=== PATIENT | male | born 1950 | race Hispanic/Latino ===

== ENCOUNTER 2016-02-23 15:25 | Emergency (ER) | payer MEDICARE, SELFPAY ==
[2016-02-23] MEDS ORDERED: Ondansetron ODT 4 MG TAB ONE (15:46)
--- NOTE | 2016-02-23 17:08 | ERRECORD ---
[facility] EMERGENCY RECORD HPI NAUSEA/VOMITING/DIARRHEA (15:44 [facility] CHIEF COMPLAINT: Patient presents for evaluation of nausea, Patient presents for evaluation of vomiting, Patient presents for evaluation of diarrhea, Patient presents for evaluation of dehydration. HISTORIAN: History provided by patient, 65M presents to the ED with complaints of nausea, vomiting and diarrhea that began early this morning around 430. States he ate at a [place] restaurant he has never been to before yesterday evening. Denies abdominal pain. Denies blood in his stool or vomit. Denies back pain, or urinary complaints. LOCATION MALE: No localizing symptoms. QUALITY: Pain is dull in nature, described as cramping. TIME COURSE: Sudden onset of symptoms, There has been no change in the patient's symptoms over time, are intermittent. ASSOCIATED WITH MALE: Associated with inability to tolerate oral intake, Associated with vomiting. EXACERBATED BY: Patient's condition exacerbated by food. RELIEVED BY: Patient's condition relieved by nothing. ROS (15:46 JJA) CONSTITUTIONAL: Negative constitutional review of systems, Historian denies chills, denies fever. EYES: Negative eye review of systems, Historian denies eye pain, denies eye discharge, denies vision changes. ENT: Negative ears, nose, throat review of systems, Historian denies rhinorrhea, denies sore throat. CARDIOVASCULAR: Negative cardiovascular review of systems, Historian denies chest pain, denies palpitations. RESPIRATORY: Negative respiratory review of systems, Historian denies cough, denies shortness of breath. GI: Historian reports diarrhea, reports nausea, reports vomiting. GENITOURINARY MALE: Negative genitourinary review of systems, Historian denies dysuria, denies hematuria. MUSCULOSKELETAL: Negative musculoskeletal review of systems, Historian denies back pain, denies fall, denies injury, denies neck pain. SKIN: Negative skin review of systems, Historian denies rash, denies skin changes. NEUROLOGIC: Negative neurologic review of systems, Historian denies headache. HEMO/LYMPHATIC: Normal hematologic/lymphatic system review, Historian denies abnormal blood clotting. PAST MEDICAL HISTORY (15:46 WJAN) MEDICAL HISTORY: Flu vaccine up to date, Tetanus immunization up to date, Pneumococcal vaccine up to date, Past medical history includes history of diabetes, Type II, Past medical history includes endocrine disease, hyperthyroidism. &a-1R&a+25V*p+0X*l9789G*c202B*c15G*c2P*p-0X&a-25V&a+1R Name: Darrell Guevara : 1950 M65 MedRec: [id number] AcctNum: [id number] Prepared: Amanedep Feb 23, 2016 17:30 by Interface Page 1 of 4 pMD [facility] EMERGENCY RECORD MALE SURGICAL HISTORY: Surgical history of amputation to, left upper extremity, Notes: Index finger reattached. PSYCHIATRIC HISTORY: No previous psychiatric history. SOCIAL HISTORY: Patient drinks socially, once a month, Patient denies drug use, Patient has no smoking history. KNOWN ALLERGIES No Known Drug Allergies CURRENT MEDICATIONS levothyroxine: TABLET : Strength - 25 mcg : ORAL Patient Dose: 1 tab(s) Oral once a day (in the morning). (15:35 WJAN) Levemir Flexpen: INSULIN PEN (ML) : Strength - 100 unit/mL (3 mL) : SUBCUTANEOUS Patient Dose: 20 units Subcutaneous once a day (in the morning). (15:38 WJAN) VITAL SIGNS VITAL SIGNS: BP: 110/75, Pulse: 108, Resp: 18 (Non-Labored), Temp: 98.4 (Oral), Pain: 0, O2 sat: 98 on Room Air, Time: 02/23/2016 15:34. (15:34 WJAN) BP: 97/59, Pulse: 89, Resp: 18, Pain: 0, O2 sat: 100 on Room Air, Time: 02/23/2016 16:30. (16:30 AHOO) BP: 127/72, Pulse: 92, Resp: 18, Temp: 98.6 (Oral), Pain: 0, O2 sat: 98 on Room Air, Time: 02/23/2016 17:01. (17:01 AHOO) PHYSICAL EXAM (15:46 [facility]) CONSTITUTIONAL: Vital signs reviewed, Patient afebrile, Pulse normal, Blood pressure normal, Respiratory rate normal, Patient appears non toxic, Patient appears pain free, Patient alert and oriented to person, place and time. HEAD: Head exam normal, Head exam included findings of head atraumatic, normocephalic. EYES: Eye exam normal, Eye exam included findings of eyelids normal to inspection, Pupils equally round and reactive to light, Extraocular muscles intact, no nystagmus. ENT: ENT exam normal, Ear exam normal, external ear normal, tympanic membranes normal, no bleeding, Pharynx exam normal, Uvula exam normal, Tonsil exam normal, Mouth exam normal, mucous membranes moist, teeth normal. NECK: Neck exam normal, Neck exam included findings of normal range of motion, Trachea midline, no meningeal signs, no cervical adenopathy, no tenderness. RESPIRATORY CHEST: Respiratory and chest exam normal, Respiratory exam included findings of no respiratory distress, Breath sounds clear. CARDIOVASCULAR: Cardiovascular assessment normal, Cardiovascular &a-1R&a+25V*p+0X*r9144J*c202B*c15G*c2P*p-0X&a-25V&a+1R Name: Darrell Guevara : 1950 M65 MedRec: [id number] AcctNum: [id number] Prepared: Amandeep Feb 23, 2016 17:30 by Interface Page 2 of 4 D [facility] EMERGENCY RECORD exam included findings of heart rate regular rate and rhythm, Heart sounds normal. ABDOMEN MALE: Abdominal exam included findings of abdomen nontender, Bowel sounds normal, no distension, no mass, no pulsatile masses, no peritoneal signs, no rigidity, no guarding, no rebound, Rovsing's sign absent. BACK: Back exam normal, Back exam included findings of normal inspection, range of motion normal, no tenderness. UPPER EXTREMITY: Upper extremity exam normal, Upper extremity exam included findings of inspection normal, Range of motion normal, Motor strength normal, Sensation intact, Radial pulse normal. LOWER EXTREMITY: Lower extremity exam normal, Lower extremity exam included findings of inspection normal, Range of motion normal, Motor strength normal, Sensation intact, Posterior tibial pulse normal, Pedal pulse normal. NEURO: Neuro exam normal, Neuro exam findings include patient oriented to person, place and time, Speech normal, Gait normal. SKIN: Skin exam normal, Skin exam included findings of skin warm, dry, and normal in color, no rash. PSYCHIATRIC: Psychiatric exam normal, Normal affect. MEDICATION ADMINISTRATION SUMMARY Drug Name: *ondansetron, Dose Ordered: 4 mg, Route: Sublingual, Status: Given, Time: 15:47 02/23/2016, *Additional information available in notes, Detailed record available in Medication Service section. DOCTOR NOTES (16:59 [facility]) RE-EVALUATION: Routine re-evaluation, after administration of antiemetics, The patient's condition has improved. TEXT: Patient presented with abdominal pain, nausea, and diarrhea. The patient was well appearing and non toxic with stable vital signs. Physical exam including thorough abdominal exam was unremarkable. Considered such diagnoses as appendicitis, obstruction, or cholecystitis, but based on history and exam, felt these were unlikely. Imaging studies not warranted at this time. The patient is appropriate for outpatient management and follow up with PMD. If abdominal pain worsens, the patient should return to the ED for re-evaluation. PATIENT STATUS: Patient has improved since arrival to emergency department. PATIENT PLAN: The patient will be discharged, The patient will follow up with primary care physician. PROBLEM LIST No recorded problems DIAGNOSIS (16:57 [facility]) FINAL: PRIMARY: Acute Gastroenteritis - presumed &a-1R&a+25V*p+0X*b0798A*c202B*c15G*c2P*p-0X&a-25V&a+1R Name: Darrell Guevara : 1950 M65 MedRec: [id number] AcctNum: [id number] Prepared: Amandeep Feb 23, 2016 17:30 by Interface Page 3 of 4 pMD [facility] EMERGENCY RECORD infectious. PRESCRIPTION (16:59 [facility]) Zofran ODT: TABLET, RAPID DISSOLVE : 4 mg : ORAL : Quantity: 4 Unit: mg Route: ORAL Schedule: every 8 hours PRN Dispense: 12 May substitute. Refills: No Refills . NOTES: Take as needed for nausea or vomiting. One refill authorized No refills. DISPOSITION PATIENT: Disposition Type: Discharge, Disposition: *Discharge Home. (16:57 [facility]) Patient left the department. (17:23 [facility]) Rush: KEE=LEIF Coon, May [facility] Alicia, Jose MALAGON=CHANDNI Ashley, Faby &a-1R&a+25V*p+0X*d4715C*c202B*c15G*c2P*p-0X&a-25V&a+1R Name: Guevara Darrell Chowdary : 1950 M65 MedRec: [id number] AcctNum: [id number] Prepared: Amandeep Feb 23, 2016 17:30 by Interface Page 4 of 4 pMD MTDD
--- NOTE | 2016-02-23 17:19 | PICIS ---
[facility] EMERGENCY RECORD TRIAGE (MonFeb 23, 2016 15:35 WJAN) TRIAGE NOTES: vomiting SINCE 4AM THIS MORNING. (MonFeb 23, 2016 15:35 WJAN) PATIENT: NAME: Darrell Guevara, AGE: 65, GENDER: male, : [facility] 1950, TIME OF GREET: MonFeb 23, 2016 15:26, PREFERRED LANGUAGE: Serbian, ETHNICITY: or , ECODE BILLING MAP: [facility], SSN: [id number], Zip Code: [address], KG WEIGHT: 86.18 (est.), , , PERSON ID: [id number], PAYMENT: X Medicare, PCP: MD Higgins Kyle. (MonFeb 23, 2016 15:35 WJAN) PHONE: . (16:11) COMPLAINT: Vomiting Alone. (MonFeb 23, 2016 15:35 WJAN) ADMISSION: URGENCY: 4 Non Urgent, ADMISSION SOURCE: Home, TRANSPORT: Walk-in, BED: TRIAGE. (MonFeb 23, 2016 15:35 WJAN) IMMUNIZATIONS: Flu vaccine up to date, Tetanus immunization up to date, Pneumococcal vaccine up to date. (15:46 WJAN) SIRS SCORING: Heart Rate 55-109 (0), Temp range 96.8-101.1 (0), respiratory rate 12-24 (0), Mental Status altered: no (0), Infection or Suspected Infection: No. (15:46 WJAN) TRIAGE SCREENING: Patient denies suicidal ideation, Patient denies presence of domestic violence. (15:46 WJAN) PROVIDERS: TRIAGE NURSE: Faby Ashley RN. (MonFeb 23, 2016 15:35 WJAN) VITAL SIGNS: BP 110/75, Pulse 108, Resp 18, (Non-Labored), Temp 98.4, (Oral), Pain 0, O2 Sat 98, on Room Air, Time 02/23/2016 15:34. (15:34 WJAN) PREVIOUS VISIT ALLERGIES: No Known Drug Allergies. (MonFeb 23, 2016 15:35 WJAN) No Known Drug Allergies. (15:46 WJAN) KNOWN ALLERGIES No Known Drug Allergies CURRENT MEDICATIONS levothyroxine: TABLET : Strength - 25 mcg : ORAL Patient Dose: 1 tab(s) Oral once a day (in the morning). (15:35 WJAN) Levemir Flexpen: INSULIN PEN (ML) : Strength - 100 unit/mL (3 mL) : SUBCUTANEOUS Patient Dose: 20 units Subcutaneous once a day (in the morning). (15:38 WJAN) VITAL SIGNS VITAL SIGNS: BP: 110/75, Pulse: 108, Resp: 18 (Non-Labored), Temp: 98.4 (Oral), Pain: 0, O2 sat: 98 on Room Air, Time: 02/23/2016 15:34. (15:34 WJAN) BP: 97/59, Pulse: 89, Resp: 18, Pain: 0, O2 sat: 100 on Room Air, Time: 02/23/2016 16:30. (16:30 AHOO) BP: 127/72, Pulse: 92, Resp: 18, Temp: 98.6 (Oral), Pain: 0, O2 sat: 98 &a-1R&a+25V*p+0X*e5384L*c202B*c15G*c2P*p-0X&a-25V&a+1R Name: Darrell Guevara : 1950 M65 MedRec: [id number] AcctNum: [id number] Prepared: Amandeep Feb 23, 2016 17:35 by Interface Page [address] [facility] EMERGENCY RECORD on Room Air, Time: 02/23/2016 17:01. (17:01 AHOO) NURSING ASSESSMENT: FOCUSED (15:40 WJAN) CONSTITUTIONAL: Patient arrives ambulatory, Gait steady, History obtained from patient, Patient appears comfortable, Patient cooperative, Patient alert, Oriented to person, place and time, Skin warm, Skin dry, Skin normal in color, Mucous membranes pink, Mucous membranes moist, Patient is well-groomed, Patient complains of Vomiting, Pt reports vomiting since 4am today, pt reports BS at 290s, pt A&ox4, NAD, breathing non-labored. PAIN: Patient rates pain as 0 out of 10. NEURO: Focused neuro assessment findings include patient alert, cooperative, No facial droop noted, Speech coherent, no weakness, no numbness, No loss of consciousness. GCS: Eye opening: (4) - Spontaneous, Verbal: (5) - Oriented/conversive, Motor: (6) - Obeys commands/Spontaneous, GCS Total: 15. RESPIRATORY: Focused respiratory assessment findings include breath sounds clear, Breath sounds without rales, Breath sounds without rhonchi, Breath sounds without wheezing. ABDOMEN: Focused abdominal assessment findings include abdomen soft, no constipation, no diarrhea, no complaint of nausea, Vomiting, Number of times: 10, Bowel sounds present. SAFETY: Side rails up, Cart/Stretcher in lowest position, Family at bedside, Call light within reach, Hospital ID band on. NURSING PROCEDURE: BEDSIDE TESTING (15:39 WJAN) PATIENT IDENTIFIER: Patient actively involved in identification process, Patient's identity verified by patient stating name, Patient's identity verified by patient stating date, Patient's identity verified by hospital ID bracelet. GLUCOSE: Glucose testing indicated for diabetic patient, Capillary blood sample, Result (mg/dl) 280. FOLLOW-UP: After procedure, results given to Dr. Vargas. SAFETY: Side rails up, Cart/Stretcher in lowest position, Family at bedside, Call light within reach, Hospital ID band on. NURSING PROCEDURE: DISCHARGE NOTE (17:03 AHOO) DISCHARGE: Patient discharged to home, ambulating without assistance, family driving, accompanied by other family member, Summary of Care printed/ provided, Transition record given to patient, Discharge instructions given to patient, Prescriptions given and instructions on side effects given, Above person(s) verbalized understanding of discharge instructions and follow-up care, Patient treated and evaluated by physician. NURSING PROCEDURE: NURSE NOTES (16:22 WJAN) NURSES NOTES: Notes: Pt resting in bed with family at bedside eating crackers and drinking water for PO challenge. Pt &a-1R&a+25V*p+0X*p3814Q*c202B*c15G*c2P*p-0X&a-25V&a+1R Name: Guevara Darrell Chowdary : 1950 M65 MedRec: [id number] AcctNum: [id number] Prepared: Amandeep Feb 23, 2016 17:35 by Interface Page [address] [facility] EMERGENCY RECORD tolerating well at this this time. NURSING PROCEDURE: PO CHALLENGE PATIENT IDENTIFIER: Patient actively involved in identification process, Patient's identity verified by patient stating name, Patient's identity verified by patient stating date, Patient's identity verified by hospital ID erica. (16:21 WJAN) PO CHALLENGE: Oral fluid challenge indicated for follow up on anti-emetics given, Oral challenge performed, patient given water, amount (mL) 60. (16:21 WJAN) FOLLOW-UP: After procedure, patient tolerated oral challenge, Notes: PT TOLERATED WELL. (17:00 AHOO) SAFETY: Side rails up, Cart/Stretcher in lowest position, Family at bedside, Call light within reach, Hospital ID band on. (16:21 WJAN) MEDICATION ADMINISTRATION SUMMARY Drug Name: *ondansetron, Dose Ordered: 4 mg, Route: Sublingual, Status: Given, Time: 15:47 02/23/2016, *Additional information available in notes, Detailed record available in Medication Service section. MEDICATION SERVICE ondansetron: Order: ondansetron - Dose: 4 mg : Sublingual Notes: Generic ODT Ordered by: Jose Vargas MD Entered by: Jose Vargas MD [facility] Feb 23, 2016 15:44 , Acknowledged by: Faby Ashley RN gilbert Feb 23, 2016 15:46 Documented as given by: Faby Ashley RN Feb 23, 2016 15:47 Patient, Medication, Dose, Route and Time verified prior to administration. Amount given: 1 tab, Site: Medication administered S.L., Correct patient, time, route, dose and medication confirmed prior to administration, Patient advised of actions and side-effects prior to administration, Allergies confirmed and medications reviewed prior to administration, Patient in position of comfort, Side rails up, Cart in lowest position, Family at bedside. : Follow Up : Response assessment performed, No signs or symptoms of allergic reaction noted, Decreased nausea. (17:00 OO) HPI NAUSEA/VOMITING/DIARRHEA (15:44 [facility]) CHIEF COMPLAINT: Patient presents for evaluation of nausea, Patient presents for evaluation of vomiting, Patient presents for evaluation of diarrhea, Patient presents for evaluation of dehydration. HISTORIAN: History provided by patient, 65M presents to the ED with complaints of nausea, vomiting and diarrhea that began early this &a-1R&a+25V*p+0X*e0486I*c202B*c15G*c2P*p-0X&a-25V&a+1R Name: Darrell Guevara : 1950 M65 MedRec: [id number] AcctNum: [id number] Prepared: Amandeep Feb 23, 2016 17:35 by Interface Page [address] [facility] EMERGENCY RECORD morning around 430. States he ate at a [place] restaurant he has never been to before yesterday evening. Denies abdominal pain. Denies blood in his stool or vomit. Denies back pain, or urinary complaints. LOCATION MALE: No localizing symptoms. QUALITY: Pain is dull in nature, described as cramping. TIME COURSE: Sudden onset of symptoms, There has been no change in the patient's symptoms over time, are intermittent. ASSOCIATED WITH MALE: Associated with inability to tolerate oral intake, Associated with vomiting. EXACERBATED BY: Patient's condition exacerbated by food. RELIEVED BY: Patient's condition relieved by nothing. ROS (15:46 [facility]) CONSTITUTIONAL: Negative constitutional review of systems, Historian denies chills, denies fever. EYES: Negative eye review of systems, Historian denies eye pain, denies eye discharge, denies vision changes. ENT: Negative ears, nose, throat review of systems, Historian denies rhinorrhea, denies sore throat. CARDIOVASCULAR: Negative cardiovascular review of systems, Historian denies chest pain, denies palpitations. RESPIRATORY: Negative respiratory review of systems, Historian denies cough, denies shortness of breath. GI: Historian reports diarrhea, reports nausea, reports vomiting. GENITOURINARY MALE: Negative genitourinary review of systems, Historian denies dysuria, denies hematuria. MUSCULOSKELETAL: Negative musculoskeletal review of systems, Historian denies back pain, denies fall, denies injury, denies neck pain. SKIN: Negative skin review of systems, Historian denies rash, denies skin changes. NEUROLOGIC: Negative neurologic review of systems, Historian denies headache. HEMO/LYMPHATIC: Normal hematologic/lymphatic system review, Historian denies abnormal blood clotting. PAST MEDICAL HISTORY (15:46 JAN) MEDICAL HISTORY: Flu vaccine up to date, Tetanus immunization up to date, Pneumococcal vaccine up to date, Past medical history includes history of diabetes, Type II, Past medical history includes endocrine disease, hyperthyroidism. MALE SURGICAL HISTORY: Surgical history of amputation to, left upper extremity, Notes: Index finger reattached. PSYCHIATRIC HISTORY: No previous psychiatric history. SOCIAL HISTORY: Patient drinks socially, once a month, Patient denies drug use, Patient has no smoking history. &a-1R&a+25V*p+0X*n5371Y*c202B*c15G*c2P*p-0X&a-25V&a+1R Name: Darrell Guevara : 1950 M65 MedRec: [id number] AcctNum: [id number] Prepared: Amandeep Feb 23, 2016 17:35 by Interface Page [address] [facility] EMERGENCY RECORD PHYSICAL EXAM (15:46 [facility]) CONSTITUTIONAL: Vital signs reviewed, Patient afebrile, Pulse normal, Blood pressure normal, Respiratory rate normal, Patient appears non toxic, Patient appears pain free, Patient alert and oriented to person, place and time. HEAD: Head exam normal, Head exam included findings of head atraumatic, normocephalic. EYES: Eye exam normal, Eye exam included findings of eyelids normal to inspection, Pupils equally round and reactive to light, Extraocular muscles intact, no nystagmus. ENT: ENT exam normal, Ear exam normal, external ear normal, tympanic membranes normal, no bleeding, Pharynx exam normal, Uvula exam normal, Tonsil exam normal, Mouth exam normal, mucous membranes moist, teeth normal. NECK: Neck exam normal, Neck exam included findings of normal range of motion, Trachea midline, no meningeal signs, no cervical adenopathy, no tenderness. RESPIRATORY CHEST: Respiratory and chest exam normal, Respiratory exam included findings of no respiratory distress, Breath sounds clear. CARDIOVASCULAR: Cardiovascular assessment normal, Cardiovascular exam included findings of heart rate regular rate and rhythm, Heart sounds normal. ABDOMEN MALE: Abdominal exam included findings of abdomen nontender, Bowel sounds normal, no distension, no mass, no pulsatile masses, no peritoneal signs, no rigidity, no guarding, no rebound, Rovsing's sign absent. BACK: Back exam normal, Back exam included findings of normal inspection, range of motion normal, no tenderness. UPPER EXTREMITY: Upper extremity exam normal, Upper extremity exam included findings of inspection normal, Range of motion normal, Motor strength normal, Sensation intact, Radial pulse normal. LOWER EXTREMITY: Lower extremity exam normal, Lower extremity exam included findings of inspection normal, Range of motion normal, Motor strength normal, Sensation intact, Posterior tibial pulse normal, Pedal pulse normal. NEURO: Neuro exam normal, Neuro exam findings include patient oriented to person, place and time, Speech normal, Gait normal. SKIN: Skin exam normal, Skin exam included findings of skin warm, dry, and normal in color, no rash. PSYCHIATRIC: Psychiatric exam normal, Normal affect. EVENTS TRANSFER: Triage to Emergency Triage. (MonFeb 23, 2016 15:35 WJAN) Emergency Triage to Emergency Room -03. (15:41 WJAN) Removed from Emergency Emergency Room -03. (17:23 AHOO) DOCTOR NOTES (16:59 JJA) RE-EVALUATION: Routine re-evaluation, after administration of &a-1R&a+25V*p+0X*d8428J*c202B*c15G*c2P*p-0X&a-25V&a+1R Name: Christoph Guevaranirali Chowdary : 1950 M65 MedRec: [id number] AcctNum: [id number] Prepared: MonFeb 23, 2016 17:35 by Interface Page [address] [facility] EMERGENCY RECORD antiemetics, The patient's condition has improved. TEXT: Patient presented with abdominal pain, nausea, and diarrhea. The patient was well appearing and non toxic with stable vital signs. Physical exam including thorough abdominal exam was unremarkable. Considered such diagnoses as appendicitis, obstruction, or cholecystitis, but based on history and exam, felt these were unlikely. Imaging studies not warranted at this time. The patient is appropriate for outpatient management and follow up with PMD. If abdominal pain worsens, the patient should return to the ED for re-evaluation. PATIENT STATUS: Patient has improved since arrival to emergency department. PATIENT PLAN: The patient will be discharged, The patient will follow up with primary care physician. PROBLEM LIST No recorded problems DIAGNOSIS (16:57 JJA) FINAL: PRIMARY: Acute Gastroenteritis - presumed infectious. DISPOSITION PATIENT: Disposition Type: Discharge, Disposition: *Discharge Home. (16:57 JJAC) Patient left the department. (17:23 AHOO) INSTRUCTION (16:58 JJA) DISCHARGE: NAUSEA VOMITING 5YADULT. FOLLOWUP: Gisela, MD, Wilian, Family Practice, [facility], [place] [address], . SPECIAL: Make sure you're drinking lots of fluids, eat bland foods. Follow up with your primary care doctor. PRESCRIPTION (16:59 [facility]) Zofran ODT: TABLET, RAPID DISSOLVE : 4 mg : ORAL : Quantity: 4 Unit: mg Route: ORAL Schedule: every 8 hours PRN Dispense: 12 May substitute. Refills: No Refills . NOTES: Take as needed for nausea or vomiting. One refill authorized No refills. IMAGING (17:29 [facility]) *DISCHARGE INSTRUCTIONS RECEIPT: Image captured from scanner. *SUPPLY CHARGE SHEET: Image captured from scanner. ADMIN (17:02 [facility]) DIGITAL SIGNATURE: MD Alicia, Jose. Rush: &a-1R&a+25V*p+0X*n5165A*c202B*c15G*c2P*p-0X&a-25V&a+1R Name: Darrell Guevara : 1950 M65 MedRec: [id number] AcctNum: [id number] Prepared: gilbert Feb 23, 2016 17:35 by Interface Page [address] [facility] EMERGENCY RECORD AHOO=LEIF Coon, May [facility]=MD Vargas Jason WJAN=CHANDNI Ashley, Faby &a-1R&a+25V*p+0X*r5034K*c202B*c15G*c2P*p-0X&a-25V&a+1R Name: Darrell Guevara : 1950 M65 MedRec: [id number] AcctNum: [id number] Prepared: MonFeb 23, 2016 17:35 by Interface Page 7 of 7 pMD MTDD
== END 2016-02-23 17:03 | disposition home or self-care (01) ==
LOC: BURERS 15:25
DX: K52.9 Noninfective gastroenteritis and colitis, unspecified (principal); E11.9 Type 2 diabetes mellitus without complications; E05.90 Thyrotoxicosis, unspecified without thyrotoxic crisis or storm; Z89.202 Acquired absence of left upper limb, unspecified level; Z79.4 Long term (current) use of insulin; Z79.899 Other long term (current) drug therapy
CPT/HCPCS: 36416; 99283; Q0162

== ENCOUNTER 2016-04-12 09:45 | Outpatient (CLI) | payer MEDICARE, SELFPAY ==
[2016-04-12 12:47] LABS: #Eosinphils 0.1 thou/uL (0.0-0.7); #Lymphocytes 1.9 thou/uL (1.20-3.40); #Monocytes 0.5 thou/uL (0.11-0.59); #Neutrophils 4.3 thou/uL (1.40-6.50); %Basophils 0.7 % (0.0-1.0); %Eosinophils 1.7 % (0.0-10.0); %Monocytes 7.5 % (0.0-10.0); Hematocrit 44.8 % (42.0-52.0); Red Blood Cell (RBC) Count 4.89 mill/uL (4.70-6.10); White Blood Cell (WBC) Count 6.9 thou/uL (4.8-10.8)
[2016-04-12 13:06] LABS: ALT (SGPT) 44 U/L (0-55); AST (SGOT) 46 U/L (5-34); Alkaline Phosphatase 179 U/L (40-150); Anion Gap 15 mmol/L (10-20); BUN (Urea Nitrogen) 13 mg/dL (8.4-25.7); Bilirubin, Total 1.8 mg/dL (0.2-1.2); Calc. Creatinine Clearance 0 mL/min (70-130); Calcium 9.4 mg/dL (7.8-10.44); Carbon Dioxide 23 mmol/L (23-31); Chloride 106 mmol/L (98-107); Estimated GFR-MDRD 74; LDL Cholesterol, Calculated 125 mg/dL; Protein, Total 7.8 g/dL (5.8-8.1)
== END 2016-04-12 09:46 | disposition home or self-care (01) ==
LOC: HPCALD 09:45
PROVIDERS: ATTEND Family Medicine
DX: Z12.5 Encounter for screening for malignant neoplasm of prostate (principal); E11.9 Type 2 diabetes mellitus without complications; I10 Essential (primary) hypertension; E03.9 Hypothyroidism, unspecified; E78.2 Mixed hyperlipidemia; E53.8 Deficiency of other specified B group vitamins
CPT/HCPCS: 36415; 80053; 80061; 82607; 83036; 84439; 84443; 85025; G0103

== ENCOUNTER 2016-10-26 10:56 | Outpatient (CLI) | payer MEDICARE, SELFPAY ==
[2016-10-26 13:14] LABS: ALT (SGPT) 25 U/L (8-55); AST (SGOT) 27 U/L (5-34); Albumin 3.9 g/dL (3.4-4.8); Alkaline Phosphatase 125 U/L (40-150); Anion Gap 15 mmol/L (10-20); BUN (Urea Nitrogen) 11 mg/dL (8.4-25.7); Bilirubin, Total 1.9 mg/dL (0.2-1.2); Calc. Creatinine Clearance 0 mL/min (70-130); Calcium 8.9 mg/dL (7.8-10.44); Carbon Dioxide 22 mmol/L (23-31); Cardiac Risk 6.7 (Less than 4.5); Chloride 109 mmol/L (98-107); Cholesterol 175 mg/dl (< 200 Desired); Estimated GFR-MDRD 82; Globulin 3.5 g/dL (2.4-3.5); Glucose 186 mg/dL (80-115); HDL Cholesterol 26 mg/dL (>60 Neg Risk); LDL Cholesterol, Calculated 83 mg/dL; Potassium 3.9 mmol/L (3.5-5.1); Protein, Total 7.4 g/dL (5.8-8.1); Sodium 142 mmol/L (136-145); Triglycerides 331 mg/dL (Less than 150)
[2016-10-26 13:18] LABS: Free T4 (Free Thyroxine) 1.39 ng/dL (0.70-1.48); Thyroid Stimulating Hormone 0.422 uIU/mL (0.35-4.94)
[2016-10-26 13:51] LABS: Hemoglobin A1c 8.9 % (4.0-6.0)
[2016-10-26 14:23] LABS: #Basophils 0.1 thou/uL (0.0-0.2); #Eosinphils 0.1 thou/uL (0.0-0.7); #Lymphocytes 1.7 thou/uL (1.20-3.40); #Monocytes 0.5 thou/uL (0.11-0.59); #Neutrophils 4.7 thou/uL (1.40-6.50); %Eosinophils 1.1 % (0.0-10.0); %Lymphocytes 24.5 % (21.0-51.0); %Monocytes 6.4 % (0.0-10.0); Hemoglobin 14.8 g/dL (14.0-18.0); Mean Corpuscular HGB CONC 36.1 g/dL (32.0-36.0); Mean Corpuscular Hemoglobin 33.1 pg (27.0-31.0); Mean Corpuscular Volume 91.7 fl (80.0-94.0); Mean Platelet Volume 7.6 fL (7.4-10.4); Platelet Count 113 thou/uL (130-400); RBC Distribution Width 11.4 % (11.5-14.5); Red Blood Cell (RBC) Count 4.48 mill/uL (4.70-6.10)
[2016-10-26 14:31] LABS: Manual Diff?? YES; PLT Morphology Comment Appears Decreased
[2016-10-26 14:33] LABS: MDiff Complete? YES
== END 2016-10-26 10:57 | disposition home or self-care (01) ==
LOC: HPCALD 10:56
PROVIDERS: ATTEND Family Medicine
DX: E11.9 Type 2 diabetes mellitus without complications (principal); E03.9 Hypothyroidism, unspecified; E78.2 Mixed hyperlipidemia; E53.8 Deficiency of other specified B group vitamins
CPT/HCPCS: 36415; 80053; 80061; 82607; 83036; 84439; 84443; 85025

== ENCOUNTER 2017-10-04 10:30 | Emergency (ER) | payer MEDICARE ==
[2017-10-04] MEDS ORDERED: Naloxone HCl 0.4 mg/ml Vial ONE (10:39)
[2017-10-04 11:09] LABS: ALT (SGPT) 57 U/L (8-55); AST (SGOT) 53 U/L (5-34); Acetaminophen Less than 6.0 mcg/mL (10.0-30.0); Alcohol Less than 10 mg/dL (Less than 10); Alkaline Phosphatase 123 U/L (40-150); Anion Gap 21 mmol/L (10-20); BUN (Urea Nitrogen) 17 mg/dL (8.4-25.7); Bilirubin, Total 3.1 mg/dL (0.2-1.2); Calc. Creatinine Clearance 0 mL/min (70-130); Calcium 9.5 mg/dL (7.8-10.44); Carbon Dioxide 17 mmol/L (23-31); Chloride 104 mmol/L (98-107); Estimated GFR-MDRD 44; Globulin 4.3 g/dL (2.4-3.5); Glucose 339 mg/dL (80-115); Potassium 3.9 mmol/L (3.5-5.1); Protein, Total 8.3 g/dL (5.8-8.1); Salicylate Less than 8.0 mg/dL (15.0-30.0); Sodium 138 mmol/L (136-145)
[2017-10-04 11:10] LABS: Troponin I Less than 0.010 ng/mL (< 0.028)
[2017-10-04 11:24] LABS: CKMB 15.5 ng/mL (0-6.6)
[2017-10-04 11:26] LABS: #Basophils 0.1 thou/uL (0.0-0.2); #Eosinphils 0.1 thou/uL (0.0-0.7); #Lymphocytes 1.9 thou/uL (1.20-3.40); #Monocytes 0.3 thou/uL (0.11-0.59); #Neutrophils 5.1 thou/uL (1.40-6.50); %Basophils 0.7 % (0.0-1.0); %Eosinophils 0.9 % (0.0-10.0); %Lymphocytes 25.5 % (21.0-51.0); %Neutrophils 68.9 % (42.0-75.0); Hemoglobin 16.3 g/dL (14.0-18.0); Mean Corpuscular Hemoglobin 33.1 pg (27.0-31.0); Mean Corpuscular Volume 81.5 fL (78.0-98.0); Mean Platelet Volume 6.5 fL (7.4-10.4); Platelet Count 105 thou/uL (130-400); RBC Distribution Width 12.3 % (11.5-14.5); Red Blood Cell (RBC) Count 4.92 mill/uL (4.70-6.10); White Blood Cell (WBC) Count 7.3 thou/uL (4.8-10.8)
[2017-10-04 11:43] LABS: Band 5 % (5-11); Lymphocytes 22 % (21-51); MDiff Complete? YES; Monocytes 4 % (0-10); Neutrophil 69 % (42-75); PLT Morphology Comment Appears Decreased; RBC Morphology Normal
[2017-10-04 11:49] LABS: Mean Corpuscular HGB CONC 40.6 g/dL (32.0-36.0)
[2017-10-04] MEDS ORDERED: Levothyroxine Sodium 100 MCG TAB PO SCH (12:15)
[2017-10-04 12:26] LABS: Bilirubin Small (Negative); Blood, Urine Trace (Negative); Clarity Clear (Clear); Glucose, Urine (Dipstick) >=1000 mg/dL (Negative); Leukocyte Negative (Negative); Nitrite Negative (Negative); Protein, Urine (Dipstick) Trace mg/dL (Neg-Trace); Specific Gravity, Urine 1.025 (1.005-1.030); Urobilinogen > or = 8.0 mg/dL (0.2-1.0); pH, Urine 5.5 (5.0-9.0)
[2017-10-04 12:28] LABS: Bacteria/HPF Rare-Few HPF (None Seen); RBC/HPF 0-3 HPF (0-3); Squamous Epithelial 0-3 HPF (0-3); WBC/HPF 0-3 HPF (0-3)
[2017-10-04 12:32] LABS: Amphetamine Not Detected (NotDetected); Barbiturates Screen Not Detected (NotDetected); Benzodiazepine Screen Not Detected (NotDetected); Cocaine Metabolite Screen Not Detected (NotDetected); Medtox Control Line Valid? VALID (VALID); Methadone Not Detected (NotDetected); Methamphetamine Not Detected (NotDetected); Opiate Screen Not Detected (NotDetected); Oxycodone Screen Not Detected (NotDetected); Phencyclidine (PCP) Not Detected (NotDetected); THC/Cannabinoid Screen Not Detected (NotDetected); Tricyclic Screen Not Detected (NotDetected)
[2017-10-04] MEDS ORDERED: Insulin Regular 300 UNITS/3 ML VIAL ONE (12:35)
[2017-10-04 12:51] LABS: Base Excess-Venous -3.9 mmol/L (0 (+/- 2.5)); Bicarbonate (HCO3v) 20.8 mmol/L (1.0-85.0); CO2 Tension (PvCO2) 36.2 mmHg (41.0-51.0); Calcium, Ionized 1.04 mmol/L (1.12-1.32); O2 Tension (PvO2) 45.1 mmHg (35.0-45.0); Potassium 3.9 mmol/L (3.4-4.7); pH (Venous) 7.368 (7.35-7.45); vO2 Saturation-calc 79.8 % (94-98)
--- NOTE | 2017-10-04 18:07 | RAD ---
PORTABLE CHEST: 10/04/17 An AP portable film at 1120 is compared with a 09/18/13 study. The heart remains normal in size and the lungs are clear. No infiltrate or effusion was seen. There i s no vascular congestion or edema. IMPRESSION: No acute thoracic findings. POS: HOME
--- NOTE | 2017-10-04 19:39 | CT ---
CT OF THE BRAIN WITHOUT CONTRAST; 10/04/17 Comparison is made with the 09/18/13 study. The ventricles remain normal in size and show no shift. No intracranial bleeding, extra-axial hematom a, or sign of acute stroke was found. There was no sign of mass or edema. There is some light lucency in the deep white matter that could be some minimal ischemic change. The calvarium appeared normal. The visible paranasal sinuses are clear. IMPRESSION: No acute intracranial findings. POS: HOME
== END 2017-10-04 13:46 | disposition short-term general hospital (02) ==
LOC: BURERS 10:30
DX: E11.65 Type 2 diabetes mellitus with hyperglycemia (principal); R41.82 Altered mental status, unspecified; R79.89 Other specified abnormal findings of blood chemistry; E03.9 Hypothyroidism, unspecified; Z79.4 Long term (current) use of insulin
CPT/HCPCS: 36415; 36416; 51701; 70450; 71045; 80053; 80306; 80307; 81003; 81015; 82330; 82553; 82803; 83880; 84443; 84484; 85025; 96361; 96374; 96375; J1815; J2310

== ENCOUNTER 2018-01-24 09:06 | Outpatient (CLI) | payer MEDICARE ==
--- NOTE | 2018-01-24 13:40 | ULT ---
ULTRASONOGRAPHY OF THE RIGHT UPPER QUADRANT: Date: 01/24/18 Ultrasonography of the right upper quadrant showed no focal hepatic lesions, dilated ducts, or other hepatic pathology. The liver size is normal, measuring 13.9 cm in oblique sagittal length. Portal zheng ous flow is towards the liver as expected. The gallbladder contained no stones. It is slightly contra cted even though the patient was said to be NPO for 12 hours. The wall is not thick given the underdi stention. The common bile duct was 6.0 mm wide, which is borderline. The right kidney appeared normal and was 11.8 cm long. The visible portions of the pancreas appeared normal. The aorta was only seen faintly and not truly evaluated. IMPRESSION: 1. No focal hepatic findings. 2. Common bile duct was 6.0 mm, which was borderline, but there was no evidence of intrahepatic duct al dilation or other nearby abnormality. Pancreas seen incompletely. POS: HOME
== END 2018-01-24 09:07 | disposition home or self-care (01) ==
LOC: BURULT 09:06
PROVIDERS: ATTEND Family Medicine
DX: E80.6 Other disorders of bilirubin metabolism (principal)
CPT/HCPCS: 76705

== ENCOUNTER 2018-12-04 16:01 | Emergency (ER) | payer MEDICARE ==
[2018-12-04 16:48] LABS: #Eosinphils 0.1 thou/uL (0.0-0.7); #Lymphocytes 1.9 thou/uL (1.20-3.40); #Monocytes 0.6 thou/uL (0.11-0.59); #Neutrophils 4.3 thou/uL (1.40-6.50); %Basophils 0.7 % (0.0-1.0); %Eosinophils 1.8 % (0.0-10.0); %Lymphocytes 26.6 % (21.0-51.0); %Monocytes 8.8 % (0.0-10.0); %Neutrophils 62.2 % (42.0-75.0); Mean Corpuscular HGB CONC 35.5 g/dL (32.0-36.0); Mean Corpuscular Hemoglobin 31.5 pg (27.0-31.0); Mean Corpuscular Volume 88.6 fL (78.0-98.0); Platelet Count 120 thou/uL (130-400); RBC Distribution Width 12.1 % (11.5-14.5); Red Blood Cell (RBC) Count 4.46 mill/uL (4.70-6.10)
[2018-12-04] MEDS ORDERED: Lidocaine 1% PF 5 ML VIAL ONE (16:49)
[2018-12-04 17:02] LABS: ALT (SGPT) 52 U/L (8-55); AST (SGOT) 50 U/L (5-34); Albumin 3.6 g/dL (3.4-4.8); Alkaline Phosphatase 145 U/L (40-110); Anion Gap 12 mmol/L (10-20); BUN (Urea Nitrogen) 11 mg/dL (8.4-25.7); Bilirubin, Total 1.9 mg/dL (0.2-1.2); Calc. Creatinine Clearance 0 mL/min (70-130); Calcium 9.5 mg/dL (7.8-10.44); Carbon Dioxide 27 mmol/L (23-31); Chloride 107 mmol/L (98-107); Estimated GFR-MDRD 77; Globulin 3.7 g/dL (2.4-3.5); Glucose 228 mg/dL (80-115); Potassium 3.9 mmol/L (3.5-5.1); Protein, Total 7.3 g/dL (5.8-8.1); Sodium 142 mmol/L (136-145)
[2018-12-04] MEDS ORDERED: Adacel (T-DAP) 0.5 ML SYRINGE ONE (17:15)
--- NOTE | 2018-12-05 07:11 | RAD ---
PORTABLE CHEST: Date: 12/04/18 An AP portable film at 1626 hours is compared with an 10/04/17 study. The heart remains normal in size and the lungs are clear. There is no mediastinal widening or shift, and the trachea is midline. The lungs are fully inflated and clear. No effusions are seen. No fractur es appreciated. IMPRESSION: No acute thoracic finding. POS: HOME
--- NOTE | 2018-12-05 07:12 | RAD ---
LEFT HAND 3 VIEWS: Date: 12/04/18 There has been a prior fusion of the PIP joint of the index finger. No acute fracture was seen in thi s finger or the remainder of the hand. Some opaque foreign body is seen on the palmar aspect of the d istal third finger in the soft tissues. The carpal bones appear intact. IMPRESSION: No acute findings. POS: HOME
== END 2018-12-04 17:40 | disposition home or self-care (01) ==
LOC: BURERS 16:01
DX: S61.211A Laceration without foreign body of left index finger without damage to nail, initial encounter (principal); E11.9 Type 2 diabetes mellitus without complications; E03.9 Hypothyroidism, unspecified; Z79.899 Other long term (current) drug therapy; Z79.84 Long term (current) use of oral hypoglycemic drugs; V49.9XXA Car occupant (driver) (passenger) injured in unspecified traffic accident, initial encounter
CPT/HCPCS: 12001; 71045; 80053; 85025; 90471; 90715; 93005; J2001

== ENCOUNTER 2019-02-13 17:29 | Emergency (ER) | payer MEDICARE ==
[2019-02-13] MEDS ORDERED: methylPREDNISolone Sod Succ/PF 125 MG/2 ML VIAL ONE (18:10)
== END 2019-02-13 18:25 | disposition home or self-care (01) ==
LOC: BURERS 17:29
DX: M54.12 Radiculopathy, cervical region (principal); E11.9 Type 2 diabetes mellitus without complications; E03.9 Hypothyroidism, unspecified; Z79.899 Other long term (current) drug therapy; Z79.4 Long term (current) use of insulin
CPT/HCPCS: 96372; 99283; J2930

== ENCOUNTER 2020-03-21 08:53 | Emergency (ER) | payer MEDICARE ==
[2020-03-21 09:17] LABS: Hemoglobin 13.2 g/dL (14.0-18.0); Mean Corpuscular HGB CONC 34.4 g/dL (32.0-36.0); Mean Corpuscular Hemoglobin 33.2 pg (27.0-31.0); Mean Corpuscular Volume 96.4 fL (78.0-98.0); Mean Platelet Volume 7.8 fL (7.4-10.4); Platelet Count 89 thou/uL (130-400); RBC Distribution Width 13.1 % (11.5-14.5); Red Blood Cell (RBC) Count 3.98 mill/uL (4.70-6.10); White Blood Cell (WBC) Count 6.5 thou/uL (4.8-10.8)
[2020-03-21 09:19] LABS: INR-International Normal Ratio 1.4; Prothrombin Time 17.4 sec (12.0-14.7)
[2020-03-21 09:20] LABS: PTT 33.9 sec (22.9-36.1)
[2020-03-21 09:28] LABS: Base Excess-Venous -4.4 mmol/L (-2.0 to 3.0); Bicarbonate (HCO3v) 19.3 mmol/L (22.0-28.0); CO2 Tension (PvCO2) 30.8 mmHg (40.0-50.0); Calcium, Ionized 1.07 mmol/L (1.15-1.33); Chloride 110 mmol/L (98-107); Hemoglobin - Calc 12.2 g/dL (14.0-18.0); Potassium 3.6 mmol/L (3.5-5.1); Sodium 142 mmol/L (138-145); T. Carbon Dioxide 20.3 mmol/L (22.0-28.0); vO2 Saturation-calc 99.6 % (60.0-85.0)
[2020-03-21 09:36] LABS: #Basophils 0.1 thou/uL (0.0-0.2); #Eosinphils 0.1 thou/uL (0.0-0.7); #Lymphocytes 1.1 thou/uL (1.20-3.40); #Monocytes 0.4 thou/uL (0.11-0.59); #Neutrophils 4.9 thou/uL (1.40-6.50); %Basophils 0.8 % (0.0-1.0); %Eosinophils 0.9 % (0.0-10.0); %Lymphocytes 17.2 % (21.0-51.0); %Monocytes 5.9 % (0.0-10.0); %Neutrophils 75.3 % (42.0-75.0); ALT (SGPT) 69 U/L (8-55); AST (SGOT) 58 U/L (5-34); Albumin 3.1 g/dL (3.4-4.8); Alkaline Phosphatase 116 U/L (40-110); Anion Gap 16 mmol/L (10-20); BUN (Urea Nitrogen) 17 mg/dL (8.4-25.7); CK (CPK) 711 U/L (30-200); Calc. Creatinine Clearance 0 mL/min (70-130); Calcium 8.2 mg/dL (7.8-10.44); Carbon Dioxide 17 mmol/L (23-31); Chloride 111 mmol/L (98-107); Globulin 3.3 g/dL (2.4-3.5); Glucose 183 mg/dL (80-115); Potassium 3.7 mmol/L (3.5-5.1); Protein, Total 6.4 g/dL (5.8-8.1); Sodium 140 mmol/L (136-145)
[2020-03-21 09:37] LABS: Acetaminophen Less than 6.0 mcg/mL (10.0-30.0); Alcohol Less than 10 mg/dL (Less than 10); Lipase 58 U/L (8-78); Platelet Morphology Comment Appears Decreased; Salicylate Less than 8.0 mg/dL (15.0-30.0)
[2020-03-21 09:38] LABS: MDiff Complete? YES
--- NOTE | 2020-03-21 09:52 | RAD ---
PORTABLE CHEST: DATE: 03/21/2020. FINDINGS: An AP portable film at 0909 shows the patient has been intubated. The tip of the endotracheal tube i s appropriate, being a few centimeters above the mar[place]. The lungs are inflated. No lobar infiltrat e, pneumothorax, or pleural effusion was seen. The interstitial markings are perhaps a little promin ent, but the lungs are not completely inflated, so I would make little of it. The mediastinum shows no widening or shift. No fractures were appreciated. The stomach is distended with air. IMPRESSION: 1. Clear lungs. Adequate positioning of endotracheal tube. 2. Gastric distention. POS: HOME
--- NOTE | 2020-03-21 09:54 | CT ---
CT OF THE BRAIN WITHOUT CONTRAST: DATE: 03/21/2020. COMPARISON: Comparison is made with the prior exam dated 10/04/2017. FINDINGS: The ventricles are normal in size with no shift. No intracranial bleeding or extraaxial hematoma was seen. There is no sign of acute stroke, mass, or edema. The calvarium appears intact with no sign of fracture. IMPRESSION: No acute intracranial findings. POS: HOME
--- NOTE | 2020-03-21 09:59 | CT ---
CT CERVICAL SPINE: DATE: 03/21/2020. FINDINGS: Spiral CT of the cervical spine was done for evaluation after trauma. No fracture, dislocation, or acute bony change was seen at any cervical level. Disk space narrowing is prominent at C5-C6 and degenerative end plate changes are seen here and particularly at the superi or end plate of C7. The soft tissues are normal in thickness and the C1 to dens distance is normal. The patient has been intubated and an NG tube has been placed which are seen within the field of vie w. Findings by level follow: C1-C2: No acute findings. C2-C3: No acute findings. C3-C4: Mild right foraminal stenosis and moderate left foraminal stenosis with prominent left facet arthritis. C4-C5: Severe facet arthritis on the left. Mild right foraminal stenosis and moderate left foramina l stenosis. C5-C6: Severe bilateral foraminal stenosis due to uncovertebral osteophytes. C6-C7: Mild bilateral foraminal stenosis due to osteophytes. C7-T1: No acute findings. T1-T2: No acute findings. Lung apices are clear and fully inflated with no pneumothorax. IMPRESSION: Degenerative changes as noted, but no acute traumatic findings. Preliminary report for both scans called to ER at 0943 on 03/21/2020. CODE CR POS: HOME
[2020-03-21 10:22] LABS: Bilirubin Negative (Negative); Blood, Urine Negative (Negative); Clarity Clear (Clear); Glucose, Urine (Dipstick) 100 mg/dL (Negative); Ketone, Urine Trace mg/dL (Negative); Leukocyte Negative (Negative); Nitrite Negative (Negative); Protein, Urine (Dipstick) Trace mg/dL (Neg-Trace); Specific Gravity, Urine 1.025 (1.005-1.030)
[2020-03-21 10:30] LABS: Amphetamine Not Detected (NotDetected); Barbiturates Screen Not Detected (NotDetected); Benzodiazepine Screen Not Detected (NotDetected); Cocaine Metabolite Screen Not Detected (NotDetected); Medtox Control Line Valid? VALID (VALID); Methadone Not Detected (NotDetected); Methamphetamine Not Detected (NotDetected); Opiate Screen Not Detected (NotDetected); Oxycodone Screen Not Detected (NotDetected); Phencyclidine (PCP) Not Detected (NotDetected); THC/Cannabinoid Screen Not Detected (NotDetected); Tricyclic Screen Not Detected (NotDetected)
== END 2020-03-21 09:54 | disposition short-term general hospital (02) ==
LOC: BURERS 08:53
DX: R41.82 Altered mental status, unspecified (principal)
CPT/HCPCS: 51702; 70450; 71045; 72125; 80053; 80306; 80307; 81003; 82140; 82330; 82550; 82803; 83605; 83690; 83880; 84443; 84484; 85025; 85610; 85730

== ENCOUNTER 2020-12-23 09:23 | Outpatient (CLI) | payer MEDICARE ==
[2020-12-23] MEDS ORDERED: Iopamidol 370 76% 100 ML VIAL ONE (11:30)
== END 2020-12-23 09:24 | disposition home or self-care (01) ==
LOC: BURCT 09:23
PROVIDERS: ATTEND Family Medicine
DX: E80.6 Other disorders of bilirubin metabolism (principal); K74.60 Unspecified cirrhosis of liver; R18.8 Other ascites; K83.8 Other specified diseases of biliary tract; K63.89 Other specified diseases of intestine
CPT/HCPCS: 74177; Q9967

== ENCOUNTER 2023-06-19 10:39 | Emergency (ER) | payer MEDICARE, OTHER ==
[2023-06-19 11:16] LABS: #Basophils 0.1 thou/uL (0.0-0.2); #Eosinphils 0.1 thou/uL (0.0-0.7); #Lymphocytes 1.5 thou/uL (1.20-3.40); #Monocytes 0.5 thou/uL (0.11-0.59); #Neutrophils 3.6 thou/uL (1.40-6.50); %Basophils 1.2 % (0.0-1.0); %Eosinophils 2.2 % (0.0-10.0); %Lymphocytes 25.4 % (21.0-51.0); %Monocytes 7.9 % (0.0-10.0); %Neutrophils 63.2 % (42.0-75.0); Hematocrit 38.9 % (42.0-52.0); Hemoglobin 13.2 g/dL (14.0-18.0); Mean Corpuscular HGB CONC 33.9 g/dL (32.0-36.0); Mean Corpuscular Hemoglobin 31.4 pg (27.0-31.0); Mean Corpuscular Volume 92.6 fl (78.0-98.0); Mean Platelet Volume 7.2 fL (7.4-10.4); Platelet Adequacy Comment Appears Decreased; Platelet Count 105 10x3/uL (130-400); RBC Distribution Width 12.5 % (11.5-14.5); White Blood Cell (WBC) Count 5.7 10x3/uL (4.8-10.8)
[2023-06-19 11:20] LABS: MDiff Complete? YES; Manual Diff?? YES
[2023-06-19 11:22] LABS: ALT (SGPT) 28 U/L (8-55); AST (SGOT) 31 U/L (5-34); Albumin 3.1 g/dL (3.4-4.8); Alkaline Phosphatase 197 U/L (40-110); Anion Gap 14 mmol/L (10-20); BUN (Urea Nitrogen) 21 mg/dL (8.4-25.7); Bilirubin, Total 1.9 mg/dL (0.2-1.2); Calc. Creatinine Clearance 0 mL/min (70-130); Calcium 8.9 mg/dL (7.8-10.44); Carbon Dioxide 16 mmol/L (23-31); Chloride 115 mmol/L (98-107); Estimated GFR 48; Globulin 3.4 g/dL (2.4-3.5); Glucose 207 mg/dL (83-110); Magnesium 1.3 mg/dL (1.6-2.6); Potassium 4.6 mmol/L (3.5-5.1); Protein, Total 6.5 g/dL (5.8-8.1); Sodium 140 mmol/L (136-145)
[2023-06-19] MEDS ORDERED: Rifaximin 550 MG TAB PO SCH (11:30)
[2023-06-19] MEDS ORDERED: Lactulose 20 GM (30 mL) UDCUP PO SCH (11:30)
[2023-06-19] MEDS ORDERED: Magnesium 2 GM/50 ML BAG (IN WATER) ONE (12:02)
[2023-06-19 15:08] LABS: Bilirubin Negative (Negative); Blood, Urine Negative (Negative); Clarity Clear (Clear); Glucose, Urine (Dipstick) Negative (Negative); Ketone, Urine Negative (Negative); Leukocyte Negative (Negative); Nitrite Negative (Negative); Protein, Urine (Dipstick) Negative (Neg-Trace)
[2023-06-19 15:16] LABS: Bacteria/HPF Rare-Few HPF (None Seen); CAUTI Indications for Culture Pelvic or flank pain; RBC/HPF None Seen HPF (0-3); Squamous Epithelial 0-3 HPF (0-3); WBC/HPF 0-3 HPF (0-3)
[2023-06-19 15:18] LABS: Urine Culture Reflex No No
== END 2023-06-19 14:53 | disposition short-term general hospital (02) ==
LOC: BURERS 10:39
DX: K76.82 Hepatic encephalopathy (principal); E11.9 Type 2 diabetes mellitus without complications
CPT/HCPCS: 36415; 80053; 81001; 82140; 83605; 83735; 85025; 96365; J3475

== ENCOUNTER 2023-11-15 18:13 | Emergency (ER) | payer MEDICARE ==
[2023-11-15 18:56] LABS: #Basophils 0.1 thou/uL (0.0-0.2); #Eosinphils 0.1 thou/uL (0.0-0.7); #Lymphocytes 1.8 thou/uL (1.20-3.40); #Monocytes 0.4 thou/uL (0.11-0.59); %Basophils 0.9 % (0.0-1.0); %Eosinophils 2.3 % (0.0-10.0); %Lymphocytes 27.3 % (21.0-51.0); %Monocytes 6.7 % (0.0-10.0); %Neutrophils 62.8 % (42.0-75.0); Hematocrit 40.6 % (42.0-52.0); Hemoglobin 13.6 g/dL (14.0-18.0); Mean Corpuscular HGB CONC 33.6 g/dL (32.0-36.0); Mean Corpuscular Volume 95.2 fl (78.0-98.0); Mean Platelet Volume 7.3 fL (7.4-10.4); Platelet Count 119 10x3/uL (130-400); RBC Distribution Width 11.6 % (11.5-14.5); Red Blood Cell (RBC) Count 4.26 mill/uL (4.70-6.10); White Blood Cell (WBC) Count 6.4 10x3/uL (4.8-10.8)
[2023-11-15 19:00] LABS: Bilirubin Small (Negative); Blood, Urine Negative (Negative); Clarity Slightly Cloudy (Clear); Glucose, Urine (Dipstick) 100 mg/dL (Negative); Ketone, Urine 15 mg/dL (Negative); Leukocyte Small (Negative); Nitrite Positive (Negative); Protein, Urine (Dipstick) Negative (Neg-Trace); Specific Gravity, Urine 1.025 (1.005-1.030); pH, Urine 5.5 (5.0-9.0)
[2023-11-15 19:08] LABS: ALT (SGPT) 28 U/L (8-55); AST (SGOT) 36 U/L (5-34); Albumin 3.4 g/dL (3.4-4.8); Alcohol Less than 10.0 mg/dL (Less than 10); Alkaline Phosphatase 152 U/L (40-110); Anion Gap 16 mmol/L (10-20); BUN (Urea Nitrogen) 21 mg/dL (8.4-25.7); Calc. Creatinine Clearance 0 mL/min (70-130); Calcium 9.3 mg/dL (7.8-10.44); Carbon Dioxide 17 mmol/L (23-31); Chloride 113 mmol/L (98-107); Estimated GFR 41; Globulin 3.7 g/dL (2.4-3.5); Glucose 175 mg/dL (83-110); Protein, Total 7.1 g/dL (5.8-8.1); Sodium 142 mmol/L (136-145)
[2023-11-15 19:12] LABS: Bacteria/HPF 2+ HPF (None Seen); CAUTI Indications for Culture Dysuria,urgency,freq; RBC/HPF None Seen HPF (0-3)
[2023-11-15 19:13] LABS: Urine Culture Reflex Yes Yes
[2023-11-15 19:14] LABS: Platelet Adequacy Comment Appears Decreased
[2023-11-15 19:18] LABS: MDiff Complete? YES
[2023-11-15 19:19] LABS: SARS-CoV-2 E Target Negative; SARS-CoV-2 N2 Target Negative; SARS-CoV-2 NAA Rapid Test Not Detected (NotDetected); SARS-CoV-2 RdRP gene Negative
[2023-11-15] MEDS ORDERED: Sodium Chloride 0.9% 100 ML ONE (19:29)
[2023-11-15] MEDS ORDERED: cefTRIAXone (ROCEPHIN) 1 GM VIAL ONE (19:30)
== END 2023-11-15 20:08 | disposition home or self-care (01) ==
LOC: BURERS 18:13
DX: N39.0 Urinary tract infection, site not specified (principal); E11.9 Type 2 diabetes mellitus without complications; E03.9 Hypothyroidism, unspecified; Z79.4 Long term (current) use of insulin; Z79.899 Other long term (current) drug therapy
CPT/HCPCS: 80053; 80307; 81001; 82140; 83605; 85025; 87077; 87086; 87804; 96365; J0696; U0002

== ENCOUNTER 2023-12-10 16:49 | Emergency (ER) | payer MEDICARE ==
[2023-12-10 17:46] LABS: Bilirubin Small (Negative); Blood, Urine Negative (Negative); Clarity Clear (Clear); Glucose, Urine (Dipstick) 500 mg/dL (Negative); Ketone, Urine Trace mg/dL (Negative); Leukocyte Negative (Negative); Nitrite Negative (Negative); Protein, Urine (Dipstick) Negative (Neg-Trace); Specific Gravity, Urine 1.027 (1.002-1.036); pH, Urine 5.5 (5.0-9.0)
[2023-12-10 17:53] LABS: ALT (SGPT) 29 U/L (8-55); AST (SGOT) 33 U/L (5-34); Albumin 3.2 g/dL (3.4-4.8); Alkaline Phosphatase 157 U/L (40-110); Anion Gap 14 mmol/L (10-20); BUN (Urea Nitrogen) 24 mg/dL (8.4-25.7); Bilirubin, Total 1.9 mg/dL (0.2-1.2); Calc. Creatinine Clearance 0 mL/min (70-130); Calcium 9.5 mg/dL (7.8-10.44); Carbon Dioxide 20 mmol/L (23-31); Chloride 113 mmol/L (98-107); Estimated GFR 39; Globulin 3.9 g/dL (2.4-3.5); Glucose 253 mg/dL (83-110); Potassium 4.2 mmol/L (3.5-5.1); Protein, Total 7.1 g/dL (5.8-8.1); Sodium 143 mmol/L (136-145)
[2023-12-10 17:53] LABS: Bacteria/HPF 1+ HPF (None Seen); CAUTI Indications for Culture Alt mental st,lethar; RBC/HPF 0-3 HPF (0-3); Squamous Epithelial 0-3 HPF (0-3)
[2023-12-10 17:54] LABS: Troponin I 0.019 ng/mL (< 0.028)
[2023-12-10 17:54] LABS: Urine Culture Reflex No No
[2023-12-10 18:03] LABS: #Basophils 0.1 thou/uL (0.0-0.2); #Eosinophils 0.1 thou/uL (0.0-0.7); #Lymphocytes 1.7 thou/uL (1.20-3.40); #Monocytes 0.3 thou/uL (0.11-0.59); #Neutrophils 3.6 thou/uL (1.40-6.50); %Basophils 0.9 % (0.0-1.0); %Eosinophils 1.5 % (0.0-10.0); %Lymphocytes 29.8 % (21.0-51.0); %Monocytes 5.5 % (0.0-10.0); %Neutrophils 62.3 % (42.0-75.0); Hematocrit 38.8 % (42.0-52.0); Hemoglobin 13.5 g/dL (14.0-18.0); MDiff Complete? YES; Mean Corpuscular HGB CONC 34.9 g/dL (32.0-36.0); Mean Corpuscular Hemoglobin 32.1 pg (27.0-31.0); Mean Corpuscular Volume 91.9 fl (78.0-98.0); Mean Platelet Volume 6.8 fL (7.4-10.4); Platelet Count 103 10x3/uL (130-400); RBC Distribution Width 11.2 % (11.5-14.5); Red Blood Cell (RBC) Count 4.22 mill/uL (4.70-6.10); White Blood Cell (WBC) Count 5.8 10x3/uL (4.8-10.8)
== END 2023-12-10 18:32 | disposition home or self-care (01) ==
LOC: BURERS 16:49
DX: R53.1 Weakness (principal); E11.9 Type 2 diabetes mellitus without complications; E03.9 Hypothyroidism, unspecified; Z79.4 Long term (current) use of insulin; Z79.899 Other long term (current) drug therapy
CPT/HCPCS: 36415; 71045; 80053; 81001; 82140; 84484; 85025; 93005

== ENCOUNTER 2024-03-06 01:47 | Emergency (ER) | payer MEDICARE ==
[2024-03-06 02:29] LABS: INR-International Normal Ratio 1.4; Prothrombin Time 17.3 sec (12.0-14.7)
[2024-03-06 02:38] LABS: ALT (SGPT) 22 U/L (8-55); AST (SGOT) 29 U/L (5-34); Albumin 2.9 g/dL (3.4-4.8); Alkaline Phosphatase 174 U/L (40-110); Anion Gap 14 mmol/L (10-20); BUN (Urea Nitrogen) 19 mg/dL (8.4-25.7); Bilirubin, Total 1.5 mg/dL (0.2-1.2); Calc. Creatinine Clearance 0 mL/min (70-130); Calcium 8.7 mg/dL (7.8-10.44); Carbon Dioxide 16 mmol/L (23-31); Chloride 114 mmol/L (98-107); Estimated GFR 49; Globulin 3.3 g/dL (2.4-3.5); Glucose 178 mg/dL (83-110); Hematocrit 36.7 % (42.0-52.0); Hemoglobin 12.9 g/dL (14.0-18.0); Lipase 31 U/L (8-78); Lymphocytes 41 % (21-51); MDiff Complete? YES; Mean Corpuscular HGB CONC 35.1 g/dL (32.0-36.0); Mean Corpuscular Hemoglobin 31.3 pg (27.0-31.0); Mean Platelet Volume 6.7 fL (7.4-10.4); Monocytes 3 % (0-10); Neutrophil 56 % (42-75); Platelet Adequacy Comment Appears Decreased; Platelet Count 80 10x3/uL (130-400); Potassium 4.3 mmol/L (3.5-5.1); Protein, Total 6.2 g/dL (5.8-8.1); RBC Distribution Width 11.5 % (11.5-14.5); Red Blood Cell (RBC) Count 4.12 mill/uL (4.70-6.10); Sodium 140 mmol/L (136-145); White Blood Cell (WBC) Count 5.5 10x3/uL (4.8-10.8)
[2024-03-06 02:44] LABS: Troponin I Less than 0.010 ng/mL (< 0.028)
[2024-03-06 04:38] LABS: Bilirubin Negative (Negative); Blood, Urine Negative (Negative); Clarity Clear (Clear); Glucose, Urine (Dipstick) 100 mg/dL (Negative); Ketone, Urine Trace mg/dL (Negative); Leukocyte Negative (Negative); Nitrite Negative (Negative); Protein, Urine (Dipstick) Negative (Neg-Trace); Specific Gravity, Urine 1.025 (1.005-1.030); Urobilinogen 0.2 mg/dL (Less than 2)
[2024-03-06 04:45] LABS: Bacteria/HPF Rare-Few HPF (None Seen); CAUTI Indications for Culture Alt mental st,lethar; RBC/HPF None Seen HPF (0-3); Squamous Epithelial 0-3 HPF (0-3); WBC/HPF None Seen HPF (0-3)
[2024-03-06 04:46] LABS: Urine Culture Reflex No No
[2024-03-06] MEDS ORDERED: Lactulose 20 GM (30 mL) UDCUP PO SCH (06:45)
== END 2024-03-06 10:39 | disposition short-term general hospital (02) ==
LOC: BURERS 01:47
DX: K76.82 Hepatic encephalopathy (principal); E11.9 Type 2 diabetes mellitus without complications; E03.9 Hypothyroidism, unspecified; Z79.4 Long term (current) use of insulin; Z79.899 Other long term (current) drug therapy
CPT/HCPCS: 36415; 70450; 71045; 80053; 81001; 82140; 83605; 83690; 84484; 85025; 85610; 96360